=== PATIENT | female | born 1985 | race Caucasian/White ===

== ENCOUNTER 2022-01-21 12:03 | Emergency (ER) | payer BC ==
[2022-01-21 12:09] VITALS: BP 131/88
[2022-01-21] MEDS ORDERED: CYCLOBENZAPRINE10 M1 PO (12:41)
[2022-01-21] MEDS ORDERED: PREDNISONE20 MG PO (13:25)
== END 2022-01-21 13:28 | disposition home or self-care (01) ==
LOC: ED 12:03
DX: G62.9 Polyneuropathy, unspecified (principal); Z28.310 Unvaccinated for COVID-19

== ENCOUNTER → 2022-01-29 | Outpatient (CLI) | payer BC ==
[~2022-01-29] MED LIST: CYCLOBENZAPRINE10 M1 PO; PREDNISONE20 MG PO
== END ==
LOC: VAS 13:47 → RAD 14:00 → VAS 14:00
DX: R53.1 Weakness (principal)

== ENCOUNTER → 2022-03-04 | Outpatient (CLI) | payer BC | LOC: RAD 16:33 | DX: M51.37 Other intervertebral disc degeneration, lumbosacral region (principal); M51.27 Other intervertebral disc displacement, lumbosacral region; M79.604 Pain in right leg ==